=== PATIENT | female | born 1945 | race Caucasian/White ===

== ENCOUNTER 2023-04-01 08:52 | Emergency (ER) | payer MEDICARE, OTHER ==
[~2023-04-01] VITALS: Ht 157.4 cm; Wt 95.3 kg
[2023-04-01] MEDS ORDERED: fentaNYL INJ 100 MCG/2 ML AMP IVP STA ×2 (09:14→10:50)
[2023-04-01] MEDS ORDERED: ORPHENADRINE 60 MG/2 ML (NORFLEX) AMP (ED ONLY) IVP STA (09:14)
[2023-04-01] MEDS ORDERED: ONDANSETRON 4 MG/2 ML (SDV) Z0FRAN ONE (09:30)
[2023-04-01] MEDS ORDERED: ONDANSETRON 4 MG/2 ML (SDV) Z0FRAN IV STA (09:33)
[2023-04-01] MEDS ORDERED: ONDANSETRON 4 MG/2 ML (SDV) Z0FRAN IVP STA (09:34)
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
--- NOTE | 2023-04-01 10:00 | Diagnostic Imaging Report ---
PROCEDURE: CT lumbar spine without contrast. TECHNIQUE: Multiple contiguous axial images were obtained through the lumbar spine without the use of intravenous contrast. Sagittal and coronal reformations were then performed. Auto Exposure Controls were utilized during the CT exam to meet ALARA standards for radiation dose reduction. INDICATION: Low back pain with left leg radiculopathy. COMPARISON: None. FINDINGS: No acute fracture or dislocation in the lumbar spine. There is grade 1 anterolisthesis of L4 on L5 and L5 on S1. No suspicious focal osseous lesions. There is a small amount of chronic height loss in the superior endplate of L1. Degenerative changes are present in the lumbar spine with disc/osteophyte complexes, facet hypertrophy, and buckling of the ligamentum flavum. Vacuum disc is noted at L1-L2, L2-L3, and L5-S1. Endplate sclerotic changes are visualized at the L2-L3 and L3-L4 levels. No evidence of acute spinal canal stenosis. No high density material is seen within the spinal canal. The paraspinal soft tissues are unremarkable. IMPRESSION: 1. No acute fracture or dislocation in the lumbar spine. 2. Grade 1 anterolisthesis of L4 on L5 and L5 on S1. 3. Degenerative changes in the lumbar spine with endplate sclerotic changes at L2-L3 and L3-L4. Dictated by: Dictated on workstation # [id number]
--- NOTE | 2023-04-01 10:04 | Diagnostic Imaging Report ---
PROCEDURE: CT pelvis without contrast. TECHNIQUE: Multiple contiguous axial images were obtained through the pelvis without the use of intravenous contrast. Sagittal and coronal reformations were performed. Auto Exposure Controls were utilized during the CT exam to meet ALARA standards for radiation dose reduction. INDICATION: Low back pain and left hip pain. COMPARISON: None. FINDINGS: No acute fracture or dislocation is seen in the pelvis and bilateral hips. Alignment is anatomic. No suspicious focal osseous lesions. The bilateral SI joints demonstrate normal alignment. The pubic symphysis is intact. Degenerative changes are seen in the left hip with marginal osteophytes and joint space narrowing. No joint effusion is seen. Similar degenerative changes are seen in the right hip. The surrounding soft tissues are unremarkable. The included pelvis demonstrates no acute abnormalities. Diverticulosis of the sigmoid colon is seen without evidence of acute diverticulitis. IMPRESSION: 1. No acute fracture or dislocation in the pelvis and bilateral hips. 2. Ktlf-[id number]-[id number] degenerative changes in the hips. No joint effusion. 3. Diverticulosis of the sigmoid colon without evidence of acute diverticulitis. Dictated by: Dictated on workstation # [id number]
[2023-04-01] MEDS ORDERED: FURO40TA4 (10:06)
[2023-04-01] MEDS ORDERED: NITR0.4T42 (10:06)
[2023-04-01] MEDS ORDERED: LOSA1TAB26 (10:06)
[2023-04-01] MEDS ORDERED: MELO15TA39 (10:06)
[2023-04-01] MEDS ORDERED: ATOR80TA76 (10:06)
[2023-04-01] MEDS ORDERED: PANT40TA52 (10:06)
[2023-04-01] MEDS ORDERED: ISOS120T9 (10:06)
[2023-04-01] MEDS ORDERED: CARV6.252 (10:06)
[2023-04-01] MEDS ORDERED: HYDROcodone/APAP 5 MG/325 MG (LORTAB) TAB PO STA (10:50)
[2023-04-01] MEDS ORDERED: TIZA-169 PO (10:54)
[2023-04-01] MEDS ORDERED: ACHD5005 PO (10:54)
[2023-04-01] MEDS ORDERED: PRD20T PO (10:54)
[2023-04-01] MEDS ORDERED: ONDA4TAB11 PO (11:22)
[2023-04-01 11:30] VITALS: BP 143/81
== END 2023-04-01 11:30 | disposition home or self-care (01) ==
LOC: ER FS 08:55
DX: M54.42 Lumbago with sciatica, left side (principal); M47.816 Spondylosis without myelopathy or radiculopathy, lumbar region; E66.9 Obesity, unspecified; Z68.38 Body mass index [BMI] 38.0-38.9, adult; Z88.5 Allergy status to narcotic agent; Z28.310 Unvaccinated for COVID-19
CPT/HCPCS: 72131; 72192